=== PATIENT | male | born 1960 | race Hispanic/Latino ===

== ENCOUNTER 2017-10-27 16:52 | Emergency (ER) | payer MEDICAID ==
[2017-10-27 16:52] VITALS: BMI 21.1
[2017-10-27 16:55] VITALS: BP 89/50; PULSE 88; RESP 18; TEMP 97.2; O2SAT 95
--- NOTE | 2017-10-27 16:57 | ED PDOC ---
HPI: Psych/Substance Abuse Time Seen by Provider: 10/27/17 16:56 Chief Complaint (Nursing): Alcohol Ingestion Chief Complaint (Provider): etoh History Per: Patient, EMS Additional Complaint(s): 56-year-old male presents to ED with EMS. Patient was found sitting on street with open bottles of beer. He offers no acute complaints upon arrival. Past Medical History Reviewed: Historical Data, Nursing Documentation, Vital Signs Vital Signs: Last Vital Signs Temp 97.2 F L 10/27/17 16:53 Pulse 88 10/27/17 16:53 Resp 18 10/27/17 16:53 BP 89/50 L 10/27/17 16:53 Pulse Ox 95 10/27/17 16:53 - Medical History PMH: Depression, Schizophrenia - Family History Family History: States: No Known Family Hx - Living Arrangements Living Arrangements: Other (non domiciled) - Social History Alcohol: > 2 Drinks/Day - Home Medications Home Medications: Ambulatory Orders Medication Instructions Recorded LORazepam [Ativan] 1 mg PO BID #28 tab 09/17/16 Levothyroxine [Synthroid] 25 mcg PO DAILY@0630 #14 tab 09/17/16 Risperidone [Risperdal] 3 mg PO BID #28 tablet 09/17/16 DiphenhydrAMINE [Benadryl] 25 mg PO ASDIR #1 packet 11/09/16 Hydrocortisone [Cortizone 2.5% 1 applic TOP TID #1 tube 11/09/16 CREAM] risperiDONE [RisperDAL Tab] 2 mg PO BID 30 Days #60 tab 05/18/17 Famotidine [Pepcid] 40 mg PO DAILY PRN #14 tab 08/12/17 Ondansetron ODT [Zofran ODT] 1 odt PO Q6 PRN #20 odt 08/12/17 - Allergies Allergies/Adverse Reactions: Allergies Allergy/AdvReac Type Severity Reaction Status Date / Time No Known Allergies Allergy Verified 01/14/16 18:15 Review of Systems ROS Statement: Except As Marked, All Systems Reviewed And Found Negative Psych: Positive for: Other (etoh) Physical Exam - Reviewed Nursing Documentation Reviewed: Yes Vital Signs Reviewed: Yes - Physical Exam Appears: Positive for: Well, Non-toxic, No Acute Distress Skin: Negative for: Rash Eye Exam: Positive for: Normal appearance Cardiovascular/Chest: Positive for: Regular Rate, Rhythm Respiratory: Positive for: Normal Breath Sounds Neurologic/Psych: Positive for: Alert, Oriented, Gait (steady) - ECG O2 Sat by Pulse Oximetry: 95 Pulse Ox Interpretation: Normal Medical Decision Making Medical Decision Makin56 year old intoxicated male Plan: Glucose POC - 98. Patient was observed in ED for about 1.5 hours. His condition has remained stable throughout his stay. 6:34 pm: patient is awake, alert, has steady gait, stable for d/c. Disposition - Clinical Impression Clinical Impression: Alcohol intoxication - Patient ED Disposition Is Patient to be Admitted: No Counseled Patient/Family Regarding: Need For Followup - Disposition Referrals: [facility] [Outside] Disposition: Routine/Home Disposition Time: 18:35 Condition: STABLE Instructions: Alcohol Abuse and Alcoholism (DC) Forms: [employer] (Kyrgyz)
== END 2017-10-27 19:05 | disposition home or self-care (01) ==
LOC: H.ER 16:52
DX: F10.129 Alcohol abuse with intoxication, unspecified (principal); F20.9 Schizophrenia, unspecified; F32.9 Major depressive disorder, single episode, unspecified

== ENCOUNTER 2018-01-18 23:10 | Emergency (ER) | payer MEDICAID ==
[2018-01-18 23:10] VITALS: BMI 21.1
[2018-01-18 23:13] VITALS: RESP 18
--- NOTE | 2018-01-19 01:35 | ED PDOC ---
HPI: Psych/Substance Abuse Time Seen by Provider: 01/18/18 23:57 Chief Complaint (Nursing): Alcohol Ingestion Chief Complaint (Provider): Alcohol Ingestion ED Caveat: Intoxicated History Per: Other ([employer]) Onset/Duration Of Symptoms: Hrs Current Symptoms Are (Timing): Still Present Suicide/Self Injury Attempted (Context): None Modifying Factor(s): Alcohol Additional Complaint(s): 57 y/o male with a PMHx of alcohol abuse and schizophrenia brought to the ED for public intoxication. Patient was found intoxicated, walking in the streets. Patient is reportedly homeless. Patient has had multiple visits here today for drinking. Patient admits to drinking today. Denies suicidal and homicidal ideation. PMD: None Provided Past Medical History Reviewed: Historical Data, Nursing Documentation, Vital Signs Vital Signs: Last Vital Signs Temp 98 F 01/18/18 23:11 Pulse 83 01/18/18 23:11 Resp 18 01/18/18 23:11 BP Pulse Ox 96 01/18/18 23:11 - Medical History PMH: Depression, Hypothyroidism, Pneumonia, Schizophrenia Denies: Diabetes, Hepatitis, HIV, HTN, Chronic Kidney Disease, Seizures, Sexually Transmitted Disease - Surgical History Surgical History: No Surg Hx - Family History Family History: States: Unknown Family Hx - Social History Alcohol: > 2 Drinks/Day - Home Medications Home Medications: Ambulatory Orders Medication Instructions Recorded LORazepam [Ativan] 1 mg PO BID #28 tab 09/17/16 Levothyroxine [Synthroid] 25 mcg PO DAILY@0630 #14 tab 09/17/16 Risperidone [Risperdal] 3 mg PO BID #28 tablet 09/17/16 DiphenhydrAMINE [Benadryl] 25 mg PO ASDIR #1 packet 11/09/16 Hydrocortisone [Cortizone 2.5% 1 applic TOP TID #1 tube 11/09/16 CREAM] risperiDONE [RisperDAL Tab] 2 mg PO BID 30 Days #60 tab 05/18/17 Famotidine [Pepcid] 40 mg PO DAILY PRN #14 tab 08/12/17 Ondansetron ODT [Zofran ODT] 1 odt PO Q6 PRN #20 odt 08/12/17 - Allergies Allergies/Adverse Reactions: Allergies Allergy/AdvReac Type Severity Reaction Status Date / Time No Known Allergies Allergy Verified 01/14/16 18:15 Review of Systems ROS Statement: Except As Marked, All Systems Reviewed And Found Negative Psych: Positive for: Other (EtOH abuse) Physical Exam - Reviewed Nursing Documentation Reviewed: Yes Vital Signs Reviewed: Yes - Physical Exam Appears: Positive for: No Acute Distress (comfortable but disheveled) Skin: Positive for: Normal Color, Warm, Dry Eye Exam: Positive for: Normal appearance, EOMI Respiratory: Positive for: Normal Breath Sounds. Negative for: Respiratory Distress Neurologic/Psych: Positive for: Alert (slurred speech), Oriented, Gait (steady) - ECG O2 Sat by Pulse Oximetry: 96 (RA) Pulse Ox Interpretation: Normal Medical Decision Making Medical Decision Making: Time: 51 Impression: Alcohol Intoxication Plan: -- Monitor until clinical sobriety. Scribe Attestation: Documented by Dorita Holcomb acting as a scribe for Dr. Alfonso Santamaria MD. Provider Scribe Attestation: All medical record entries made by the Scribe were at my direction and personally dictated by me. I have reviewed the chart and agree that the record accurately reflects my personal performance of the history, physical exam, medical decision making, and the department course for this patient. I have also personally directed, reviewed, and agree with the discharge instructions and disposition. Disposition - Clinical Impression Clinical Impression: Alcohol abuse with uncomplicated intoxication - Patient ED Disposition Is Patient to be Admitted: No Doctor Will See Patient In The: Office Counseled Patient/Family Regarding: Studies Performed, Diagnosis, Need For Followup - Disposition Referrals: [facility] [Outside] Disposition: Routine/Home Disposition Time: 06:30 Condition: GOOD Instructions: Alcohol Abuse and Alcoholism (DC)
[2018-01-19 06:31] VITALS: O2SAT 96
[2018-01-19 06:47] VITALS: BP 141/86; PULSE 70; TEMP 98.2
== END 2018-01-19 07:09 | disposition home or self-care (01) ==
LOC: H.ER 23:10
DX: F10.120 Alcohol abuse with intoxication, uncomplicated (principal); E03.9 Hypothyroidism, unspecified; F20.9 Schizophrenia, unspecified; F32.9 Major depressive disorder, single episode, unspecified

== ENCOUNTER 2018-02-13 19:12 | Emergency (ER) | payer MEDICAID ==
[2018-02-13 19:13] VITALS: BMI 21.1
[2018-02-13 19:16] VITALS: BP 123/71; PULSE 85; RESP 16; TEMP 98.7; O2SAT 97
--- NOTE | 2018-02-13 19:41 | ED PDOC ---
HPI: Psych/Substance Abuse Time Seen by Provider: 02/13/18 19:30 Chief Complaint (Nursing): Alcohol Ingestion Chief Complaint (Provider): ALCOHOL INGESTION History Per: Patient (57 Y/O MALE HERE UNDOMICILED HERE FOR EVALUATION OF ALCOHOL INTOXICATION NOTED. PATIENT DENIES ANY COMPLAINTS. STATES HE HAS BEEN DRINKING. ) Past Medical History Reviewed: Historical Data, Nursing Documentation, Vital Signs Vital Signs: Last Vital Signs Temp 98.7 F 02/13/18 19:15 Pulse 85 02/13/18 19:15 Resp 16 02/13/18 19:15 BP 123/71 02/13/18 19:15 Pulse Ox 97 02/13/18 19:15 - Medical History PMH: Depression, Hypothyroidism, Pneumonia, Schizophrenia Denies: Diabetes, Hepatitis, HIV, HTN, Chronic Kidney Disease, Seizures, Sexually Transmitted Disease - Family History Family History: States: Unknown Family Hx - Home Medications Home Medications: Ambulatory Orders Medication Instructions Recorded LORazepam [Ativan] 1 mg PO BID #28 tab 09/17/16 Levothyroxine [Synthroid] 25 mcg PO DAILY@0630 #14 tab 09/17/16 Risperidone [Risperdal] 3 mg PO BID #28 tablet 09/17/16 DiphenhydrAMINE [Benadryl] 25 mg PO ASDIR #1 packet 11/09/16 Hydrocortisone [Cortizone 2.5% 1 applic TOP TID #1 tube 11/09/16 CREAM] risperiDONE [RisperDAL Tab] 2 mg PO BID 30 Days #60 tab 05/18/17 Famotidine [Pepcid] 40 mg PO DAILY PRN #14 tab 08/12/17 Ondansetron ODT [Zofran ODT] 1 odt PO Q6 PRN #20 odt 08/12/17 - Allergies Allergies/Adverse Reactions: Allergies Allergy/AdvReac Type Severity Reaction Status Date / Time No Known Allergies Allergy Verified 01/14/16 18:15 Review of Systems ROS Statement: Except As Marked, All Systems Reviewed And Found Negative Physical Exam - Reviewed Nursing Documentation Reviewed: Yes Vital Signs Reviewed: Yes - Physical Exam Appears: Positive for: Well, Non-toxic, No Acute Distress Head Exam: Positive for: ATRAUMATIC, NORMAL INSPECTION, NORMOCEPHALIC Skin: Positive for: Normal Color, Warm, DRY Eye Exam: Positive for: EOMI, Normal appearance, PERRL ENT: Positive for: Normal ENT Inspection Neck: Positive for: Normal, Painless ROM Cardiovascular/Chest: Positive for: Regular Rate, Rhythm Respiratory: Positive for: CNT, Normal Breath Sounds Gastrointestinal/Abdominal: Positive for: Normal Exam, Soft Back: Positive for: Normal Inspection Extremity: Positive for: Normal ROM Neurologic/Psych: Positive for: Alert, Oriented - ECG O2 Sat by Pulse Oximetry: 97 Disposition - Clinical Impression Clinical Impression: Alcohol ingestion - Patient ED Disposition Is Patient to be Admitted: No - Disposition Disposition: Routine/Home Disposition Time: 19:50 Condition: FAIR Instructions: Alcohol Poisoning
== END 2018-02-13 19:50 | disposition home or self-care (01) ==
LOC: H.ER 19:12
DX: F10.129 Alcohol abuse with intoxication, unspecified (principal); E03.9 Hypothyroidism, unspecified; Z86.59 Personal history of other mental and behavioral disorders